=== PATIENT | male | born 1975 | race Caucasian/White ===

== ENCOUNTER 2017-04-10 12:41 | Emergency (ER) | payer MEDICAID | END 2017-04-10 15:20 | disposition home or self-care (01) | LOC: D.ER 12:41 | DX: S60.221A Contusion of right hand, initial encounter (principal); S80.01XA Contusion of right knee, initial encounter; W01.0XXA Fall on same level from slipping, tripping and stumbling without subsequent striking against object, initial encounter; Y93.89 Activity, other specified; Y92.019 Unspecified place in single-family (private) house as the place of occurrence of the external cause; M79.641 Pain in right hand; F90.9 Attention-deficit hyperactivity disorder, unspecified type ==

== ENCOUNTER → 2017-06-04 15:25 | Outpatient (CLI) | payer MEDICAID | END | disposition home or self-care (01) | LOC: D.RAD 15:25 | DX: M25.511 Pain in right shoulder (principal) ==

== ENCOUNTER 2017-09-08 21:59 | Emergency (ER) | payer SELFPAY ==
[~2017-09-08] VITALS: Ht 185.4 cm; Wt 104.5 kg
[2017-09-08 22:21] VITALS: BP 120/76; Ht 185.4 cm; Wt 104.5 kg
== END 2017-09-08 23:13 | disposition left against medical advice (07) ==
LOC: D.ER 21:59
DX: S99.921A Unspecified injury of right foot, initial encounter (principal); X58.XXXA Exposure to other specified factors, initial encounter; Y93.89 Activity, other specified; Y92.019 Unspecified place in single-family (private) house as the place of occurrence of the external cause

== ENCOUNTER 2017-09-18 00:47 | Emergency (ER) | payer SELFPAY ==
[~2017-09-18] VITALS: Ht 185.4 cm; Wt 111.4 kg
[2017-09-18 00:56] VITALS: Ht 185.4 cm; Wt 111.4 kg
[2017-09-18] MEDS ORDERED: ROBAXIN500 MG PO (01:00)
[2017-09-18] MEDS ORDERED: NORCO 7.5/325 T1 TA1 PO (02:18)
[2017-09-18] MEDS ORDERED: KEFLEX500 MG PO (02:18)
[2017-09-18 02:53] VITALS: BP 115/47
== END 2017-09-18 02:53 | disposition home or self-care (01) ==
LOC: D.ER 00:47
DX: S81.811A Laceration without foreign body, right lower leg, initial encounter (principal); W13.3XXA Fall through floor, initial encounter; Y93.89 Activity, other specified; Y92.019 Unspecified place in single-family (private) house as the place of occurrence of the external cause

== ENCOUNTER 2017-10-24 15:54 | Emergency (ER) | payer MEDICAID ==
[~2017-10-24] VITALS: Ht 190.5 cm; Wt 113.4 kg
[~2017-10-24 15:54] MED LIST: KEFLEX500 MG PO; NORCO 7.5/325 T1 TA1 PO; ROBAXIN500 MG PO
[2017-10-24 16:29] VITALS: BP 123/58; Ht 190.5 cm; Wt 113.4 kg
[2017-10-24] MEDS ORDERED: BACTRIM DS TABL1 TAB PO (17:11)
== END 2017-10-24 17:30 | disposition home or self-care (01) ==
LOC: D.ER 15:54
DX: L03.115 Cellulitis of right lower limb (principal); K21.9 Gastro-esophageal reflux disease without esophagitis

== ENCOUNTER 2017-11-11 13:58 | Emergency (ER) | payer SELFPAY ==
[~2017-11-11] VITALS: Ht 190.5 cm; Wt 108.9 kg
[~2017-11-11 13:58] MED LIST changes: +BACTRIM DS TABL1 TAB PO
[2017-11-11 14:37] VITALS: Ht 190.5 cm; Wt 108.9 kg
[2017-11-11 18:42] LABS: APPEARANCE CLEAR (CLEAR); BILIRUBIN NEGATIVE (NEGATIVE); COLOR YELLOW (YELLOW); GLUCOSE NEGATIVE (NEGATIVE); KETONE NEGATIVE (NEGATIVE); NITRITE NEGATIVE (NEGATIVE); PROTEIN TRACE mg/dL (NEGATIVE); UROBILINOGEN NORMAL (NORMAL)
[2017-11-11] MEDS ORDERED: ROXICODONE15 MG PO (18:49)
[2017-11-11 18:57] VITALS: BP 130/85
== END 2017-11-11 18:53 | disposition home or self-care (01) ==
LOC: D.ER 13:58
PROVIDERS: Family Medicine
DX: M54.5 Low back pain (principal); K21.9 Gastro-esophageal reflux disease without esophagitis

== ENCOUNTER 2017-11-20 11:22 | Emergency (ER) | payer SELFPAY ==
[~2017-11-20] VITALS: Ht 190.5 cm; Wt 113.6 kg
[~2017-11-20 11:22] MED LIST changes: +ROXICODONE15 MG PO
[2017-11-20 11:28] VITALS: Ht 190.5 cm; Wt 113.6 kg
[2017-11-20 16:16] VITALS: BP 105/67
== END 2017-11-20 16:16 | disposition home or self-care (01) ==
LOC: D.ER 11:22
DX: M54.5 Low back pain (principal); S70.01XA Contusion of right hip, initial encounter; X58.XXXA Exposure to other specified factors, initial encounter; Y93.89 Activity, other specified; Y92.019 Unspecified place in single-family (private) house as the place of occurrence of the external cause; K21.9 Gastro-esophageal reflux disease without esophagitis

== ENCOUNTER 2018-02-28 10:22 | Emergency (ER) | payer SELFPAY ==
[~2018-02-28] VITALS: Ht 190.5 cm; Wt 122.7 kg
[2018-02-28 10:26] VITALS: BP 121/71; Ht 190.5 cm; Wt 122.7 kg
[2018-02-28] MEDS ORDERED: ULTRAM50 MG PO (11:49)
[2018-02-28] MEDS ORDERED: AMOXICILLIN500 M1 PO (11:49)
== END 2018-02-28 12:09 | disposition home or self-care (01) ==
LOC: D.ER 10:22
DX: M25.511 Pain in right shoulder (principal); J01.90 Acute sinusitis, unspecified

== ENCOUNTER 2019-03-28 10:50 | Inpatient (IN) | payer SELFPAY ==
[~2019-03-28] VITALS: Ht 190.5 cm; Wt 118.2 kg
[~2019-03-28 10:50] MED LIST changes: +AMOXICILLIN500 M1 PO; +ULTRAM50 MG PO
[2019-03-28 11:59] LABS: CALC OSMOLALITY 278 mosm/kg (275-300); CALCIUM 9.1 mg/dL (8.5-10.1); CARBON DIOXIDE 28.8 mmol/L (21.0-32.0); CHLORIDE - SERUM 101 mmol/L (98-107); CREATININE - SERUM 0.9 mg/dL (0.6-1.3); GLUCOSE 114 mg/dL (74-106); POTASSIUM - SERUM 3.8 mmol/L (3.5-5.1); SODIUM 138 mmol/L (136-145); UREA NITROGEN 17 mg/dL (7-18); eGFR NON AFRICAN AMERICAN > 90 mL/min (90-120)
[2019-03-28 12:03] LABS: BASOPHILS 0.1 % (0-2); EOSINOPHILS 0 % (0-7); HEMATOCRIT 37.5 % (42.0-54.0); HEMOGLOBIN 13.1 g/dL (13.5-17.5); IMMATURE GRANULOCYTES 0.2 % (0-5); LYMPHOCYTES 9.8 % (15-50); MCH 31.4 pg (26.0-34.0); MCHC 34.9 g/dL (31.0-37.0); MCV 89.9 fL (80.0-100.0); MEAN PLATELET VOLUME 8.8 fL (7.4-10.4); MONOCYTES 6.5 % (2-11); NEUTROPHILS 83.4 % (40-80); PLATELET COUNT 289 10x3/uL (130-400); RBC 4.17 10x6/uL (4.20-6.10); RDW 13.1 % (11.5-14.5); WBC 11.7 10x3/uL (4.8-10.8)
[2019-03-28 12:06] LABS: ALKALINE PHOSPHATASE 72 U/L (30-120); ALT (SGPT) 56 U/L (10-68); BILIRUBIN - TOTAL 1.03 mg/dL (0.2-1.3); PROTEIN - SERUM 8.2 g/dL (6.4-8.2)
[2019-03-28 14:07] VITALS: BP 118/72; Ht 190.5 cm; Wt 118.2 kg
--- NOTE | 2019-03-28 14:24 | NUR ---
PT ARRIVED TO UNIT VIA HOSPITAL STAFF AND BED. ALERT AND ORIENTED, COMPLAINING OF RIGHT LEG PAIN. V/S STABLE. IV LOCATED TO LEFT FOREARM, RUNNING VANC @ 125. DENIES NEEDS AT THIS TIME, WILL CONT TO MONITOR.
--- NOTE | 2019-03-28 19:25 | NUR ---
PATIENT RESTING IN BED WITH NO S/S OF DISTRESS AND DENIES NEEDS AT THIS TIME. BED IN LOWEST POSITION AND CALL LIGHT WITHIN REACH. ENCOURAGED THE PATIENT TO CALL IF HE HAS NEEDS. WILL CONTINUE TO MONITOR.
[2019-03-28 19:30] VITALS: BP 128/71
[2019-03-29 00:30] VITALS: BP 119/53; BP 150/81
[2019-03-29 04:30] VITALS: BP 152/80
[2019-03-29 05:28] LABS: BASOPHILS 0.1 % (0-2); EOSINOPHILS 0.1 % (0-7); HEMOGLOBIN 11.8 g/dL (13.5-17.5); IMMATURE GRANULOCYTES 0.2 % (0-5); LYMPHOCYTES 16.1 % (15-50); MCHC 34.7 g/dL (31.0-37.0); MCV 89.2 fL (80.0-100.0); MEAN PLATELET VOLUME 8.8 fL (7.4-10.4); MONOCYTES 7.1 % (2-11); NEUTROPHILS 76.4 % (40-80); PLATELET COUNT 248 10x3/uL (130-400); RBC 3.81 10x6/uL (4.20-6.10); RDW 12.9 % (11.5-14.5); WBC 9.7 10x3/uL (4.8-10.8)
[2019-03-29 05:54] LABS: ALBUMIN 3.4 g/dL (3.4-5.0); ALKALINE PHOSPHATASE 68 U/L (30-120); BILIRUBIN - TOTAL 2.44 mg/dL (0.2-1.3); CALCIUM 9.1 mg/dL (8.5-10.1); CARBON DIOXIDE 26.2 mmol/L (21.0-32.0); CHLORIDE - SERUM 100 mmol/L (98-107); CREATININE - SERUM 0.8 mg/dL (0.6-1.3); GLUCOSE 97 mg/dL (74-106); POTASSIUM - SERUM 3.5 mmol/L (3.5-5.1); PROTEIN - SERUM 7.4 g/dL (6.4-8.2); SODIUM 135 mmol/L (136-145); eGFR NON AFRICAN AMERICAN > 90 mL/min (90-120)
[2019-03-29 05:58] LABS: ALT (SGPT) 39 U/L (10-68); CALC OSMOLALITY 268 mosm/kg (275-300); UREA NITROGEN 10 mg/dL (7-18)
[2019-03-29 08:16] VITALS: BP 108/49
[2019-03-29 13:40] VITALS: BP 113/49
[2019-03-29 17:04] VITALS: BP 118/42
--- NOTE | 2019-03-29 17:14 | NUR ---
ASKED PATIENT IF HE WANTED SCD'S FOR DVT PREVENTION. HE REFUSED
[2019-03-29 20:00] VITALS: BP 124/66
--- NOTE | 2019-03-29 23:49 | NUR ---
PATIENT LYING IN BED. NO SIGNS OF ACUTE DISTRESS NOTED AT THIS TIME. R FA IV W/ NS @20, NO REDNESS OR SWELLING. PATIENT WOULD LIKE SOME SPRITE, BUT HAS NO FURTHER NEEDS AT THIS TIME. BED RAILS X2. CALL LIGHT AND BEDSIDE TABLE WITHIN REACH.
[2019-03-30 00:30] VITALS: BP 121/64
[2019-03-30 06:20] VITALS: BP 118/70
[2019-03-30 08:24] VITALS: BP 110/48
[2019-03-30 10:28] LABS: ERYTHROCYTE SEDIMENTATION RATE 89 mm/hr (0-15)
[2019-03-30 10:34] LABS: BASOPHILS 0.1 % (0-2); EOSINOPHILS 0.4 % (0-7); HEMATOCRIT 32.7 % (42.0-54.0); HEMOGLOBIN 11.4 g/dL (13.5-17.5); IMMATURE GRANULOCYTES 0.3 % (0-5); MCH 31.1 pg (26.0-34.0); MCHC 34.9 g/dL (31.0-37.0); MCV 89.3 fL (80.0-100.0); MEAN PLATELET VOLUME 8.9 fL (7.4-10.4); MONOCYTES 11.1 % (2-11); NEUTROPHILS 73.1 % (40-80); PLATELET COUNT 227 10x3/uL (130-400); RBC 3.66 10x6/uL (4.20-6.10); RDW 12.9 % (11.5-14.5)
[2019-03-30 12:42] VITALS: BP 129/51
[2019-03-30 16:47] VITALS: BP 128/68
--- NOTE | 2019-03-30 19:17 | NUR ---
PATIENT RESTING IN BED WITH EYES CLOSED AND NO S/S OF DISTRESS. BED IN LOWEST POSITION AND CALL LIGHT WITHIN REACH. WILL CONTINUE TO MONITOR.
[2019-03-30 19:30] VITALS: BP 113/54
--- NOTE | 2019-03-30 19:44 | NUR ---
PATIENT UPSET AND STATES HE DOES NOT KNOW WHAT IS GOING ON WITH HIS LEG. I EXPLAINED TO THE PATIENT THAT HE IS ON IV ANTIBOTICS AND THAT WE ARE WAITING FOR TEST RESULTS TO COME BACK. PATIENT STATED "I AM JUST GOING TO LEAVE TONIGHT". I AGAIN EXPLAINED TO THE PATIENT THAT HE IS ON IV ABX AND THAT IT IS IMPORTANT FOR HIM TO RECEIVE EACH DOSE ORDERED. I ALSO EXPLAINED TO THE PATIENT THAT HE WOULD BE LEAVING AGAINST MEDICAL ADVISE AND THAT HIS CONDITION COULD POTENTIALLY WORSEN WITHOUT PROPER MEDICAL ATTENTION AND THAT HIS INSURANCE MAY NOT PAY IF HE LEAVES AMA. PATIENT VERBALIZED UNDERSTANDING AND AGREED TO STAY FOR THE NIGHT AND SPEAK TO THE SENIOR CONTROL SYSTEMS ENGINEER IN THE MORNING. PATIENT DENIES OTHER NEEDS AT THIS TIME.
[2019-03-31 00:30] VITALS: BP 120/67
[2019-03-31 04:30] VITALS: BP 109/58
--- NOTE | 2019-03-31 07:15 | NUR ---
REC'D IN BED WITH EYES CLOSED EASILY TO AROUSED WHEN NAME IS CALLED. RESP EVEN AND UNLABORED WITH NO DISTRESS NOTED. ASSESSMENT COMPLETED. C/L IN REACH AT BEDSIDE.
[2019-03-31 09:01] VITALS: BP 129/65
[2019-03-31] MEDS ORDERED: HYDROCODON-ACE1 EAC7 PO (09:43)
[2019-03-31] MEDS ORDERED: SMZ-TMP DS TABL1 TAB PO (09:43)
[2019-03-31 11:05] VITALS: BP 116/70
--- NOTE | 2019-03-31 12:00 | NUR ---
I have reviewed this patient and I concur with the Shift Assessment completed by the Licensed Practical Nurse today this shift.
--- NOTE | 2019-03-31 13:20 | NUR ---
PT REFUSED FLU VACCINATION AT THIS TIME.
--- NOTE | 2019-03-31 13:38 | NUR ---
DC HOME AT THIS TIME WITH NO C/O NOTED. VOICE UNDERSTANDING OF DC ORDERS. IV DC. STABLE CONDITION UPON DC.
--- NOTE | 2019-04-01 16:57 | MORECARE ---
CASE MANAGEMENT DISCHARGE SUMMARY PATIENT: ANH ZUNIGA UNIT: [id number] ADM DATE: 03/28/19 AGE: 44 : 77 SEX: M ROOM/BED: D.2229 AUTHOR: NIKI LOZANO PHYSICIAN: REFERRING PHYSICIAN: OCTAVIA BALTAZAR MD DATE OF SERVICE: 04/01/19 Discharge Plan Patient Name: ANH ZUNIGA [facility] : 1975 Planned Disposition: Home Anticipated Discharge Date: Discharge Date: 03/31/2019 Expected LOS: 0 Initial Reviewer: [email or web address] Initial Review Date: 04/01/2019 Generated: 04/01/19 5:56 pm Patient Name: ANH ZUNIGA Page [id number] at 1657 All edits/amendments must be made on the electronic document DICTATION DATE: 04/01/191655 [employer]IG[employer] SEALER: CRISTHIAN 04/01/191655 RPT#: [id number] DC DATE:03/31/19 STATUS: DIS IN [facility] [address] [place] [address] END OF REPORT
== END 2019-03-31 13:45 | disposition home or self-care (01) | DRG 549 ==
LOC: D.ER 10:50 → D.MS 12:37
PROVIDERS: Family Medicine; ADMIT Orthopaedic Surgery; ATTEND Orthopaedic Surgery
DX: M00.9 Pyogenic arthritis, unspecified (principal); L03.115 Cellulitis of right lower limb; W57.XXXA Bitten or stung by nonvenomous insect and other nonvenomous arthropods, initial encounter; K21.9 Gastro-esophageal reflux disease without esophagitis